=== PATIENT | male | born 1950 | race Caucasian/White ===

== ENCOUNTER 2017-11-13 18:51 | Emergency (ER) | payer SELFPAY ==
[~2017-11-13] VITALS: Ht 167.6 cm; Wt 89.0 kg
[2017-11-13] MEDS ORDERED: TETANUS, DIPHTHERIA, PERTUSSIS VAC/PF 0.5ML (>7YR OLD) IM ONE (19:30)
[2017-11-13] MEDS ORDERED: BACITRACIN/POLYMYXIN B SULFATE OINT 15GM TOP ONE (19:30)
[2017-11-13] MEDS ORDERED: LIDOCAINE HCL/EPINEPHRINE 1%-EPI 1:100,000 30 ML VIAL INFIL ONE (19:30)
[2017-11-14 03:41] VITALS: BP 117/71
== END 2017-11-14 03:43 | disposition home or self-care (01) ==
LOC: ER 18:51
DX: S02.82XA Fracture of other specified skull and facial bones, left side, initial encounter for closed fracture (principal); S51.811A Laceration without foreign body of right forearm, initial encounter; S50.812A Abrasion of left forearm, initial encounter; H54.62 Unqualified visual loss, left eye, normal vision right eye; F10.229 Alcohol dependence with intoxication, unspecified; I44.0 Atrioventricular block, first degree; Y90.9 Presence of alcohol in blood, level not specified; W01.0XXA Fall on same level from slipping, tripping and stumbling without subsequent striking against object, initial encounter; Y93.89 Activity, other specified; Y92.488 Other paved roadways as the place of occurrence of the external cause
CPT/HCPCS: 12001; 70450; 70486; 73090; 90471; 90715; 93005; 99284; X7700; Z7610

== ENCOUNTER 2019-04-09 14:36 | Emergency (ER) | payer SELFPAY ==
[~2019-04-09] VITALS: Ht 165.1 cm; Wt 68.5 kg
[2019-04-09 18:25] LABS: BASOPHILS % 1.7 % (0.0-2.0); EOSINOPHILS % 0.6 % (0.0-5.0); HEMATOCRIT. 37.6 % (42.0-52.0); HEMOGLOBIN. 12.6 g/dL (14.0-18.0); LYMPHOCYTES % 33.9 % (20.0-50.0); MEAN CORPUSCULAR VOLUME 98.3 fL (80.0-94.0); MEAN PLATELET VOLUME 6.6 fl (7.4-10.4); MONOCYTES % 6.3 % (2.0-8.0); NEUTROPHILS % 57.5 % (40.0-76.0); PLATELET 181 x1000/uL (130-400); RED BLOOD CELL COUNT 3.82 mill/uL (4.7-6.1)
[2019-04-09 18:30] LABS: CHLORIDE 94 mEq/L (98-107)
[2019-04-09 18:34] LABS: ETHANOL BLOOD 234 mg/dL
[2019-04-09] MEDS ORDERED: SODIUM CHLORIDE 0.9% 1,000 ML IV SCH (19:00)
[2019-04-09] MEDS ORDERED: ASPIRIN 81MG TABLET PO ONE (19:00)
[2019-04-09] MEDS ORDERED: MAGNESIUM/ALUMINUM HYDROXIDE/SIMETHICONE 30ML UDC PO STA (19:22)
[2019-04-09 22:21] VITALS: BP 137/80
== END 2019-04-09 22:39 | disposition home or self-care (01) ==
LOC: ER 14:36
DX: F10.129 Alcohol abuse with intoxication, unspecified (principal); R07.89 Other chest pain; R06.02 Shortness of breath; R00.2 Palpitations; R03.0 Elevated blood-pressure reading, without diagnosis of hypertension; Y90.7 Blood alcohol level of 200-239 mg/100 ml; R79.89 Other specified abnormal findings of blood chemistry
CPT/HCPCS: 36415; 71045; 80053; 80320; 83880; 84484; 85025; 93005; 99285; Z7610; G0480

== ENCOUNTER 2019-06-19 19:50 | Emergency (ER) | payer SELFPAY ==
[~2019-06-19] VITALS: Ht 170.2 cm; Wt 80.0 kg
[2019-06-19] MEDS ORDERED: LIDOCAINE HCL/PF 1% 10 MG/ML 5ML VIAL IJ ONE (21:15)
[2019-06-19] MEDS ORDERED: LIDOCAINE 1%/EPI 1:100,000 10 ML VIAL IJ ONE (21:15)
[2019-06-19] MEDS ORDERED: TETANUS, DIPHTHERIA, PERTUSSIS VAC/PF 0.5ML (>7YR OLD) IM ONE (21:15)
[2019-06-19] MEDS ORDERED: SODIUM CHLORIDE 0.9% 1,000 ML IV ONE (21:16)
[2019-06-19] MEDS ORDERED: LIDOCAINE HCL/EPINEPHRINE 1%-EPI 1:100,000 20 ML VIAL INFIL NR (21:30)
[2019-06-19 21:48] LABS: EOSINOPHILS % 3.8 % (0.0-5.0); HEMATOCRIT. 32.7 % (42.0-52.0); HEMOGLOBIN. 11.5 g/dL (14.0-18.0); LYMPHOCYTES % 29.7 % (20.0-50.0); MEAN CORPUSCULAR HEMOGLOBIN 35.1 pg (28.0-32.0); MEAN CORPUSCULAR VOLUME 99.5 fL (80.0-94.0); MEAN PLATELET VOLUME 6.1 fl (7.4-10.4); MONOCYTES % 7.3 % (2.0-8.0); NEUTROPHILS % 56.2 % (40.0-76.0); PLATELET 426 x1000/uL (130-400); RED BLOOD CELL COUNT 3.29 mill/uL (4.7-6.1)
[2019-06-19 21:54] LABS: CHLORIDE 100 mEq/L (98-107)
[2019-06-19 22:05] LABS: *AMPHETAMINES SCREEN URINE NEGATIVE (NEGATIVE); *BARBITURATES SCREEN URINE NEGATIVE (NEGATIVE); *BENZODIAZEPINES SCREEN URINE NEGATIVE (NEGATIVE); *COCAINE SCREEN URINE NEGATIVE (NEGATIVE); METHADONE URINE SCREEN NEGATIVE (NEGATIVE); OPIATES URINE SCREEN NEGATIVE (NEGATIVE)
[2019-06-19 22:06] LABS: CANNABINOID URINE SCREEN NEGATIVE (NEGATIVE); PHENCYCLIDINE URINE SCREEN NEGATIVE (NEGATIVE)
[2019-06-19 22:08] LABS: ETHANOL BLOOD 417 mg/dL
[2019-06-19] MEDS ORDERED: AMPICILLIN SOD/SULBACTAM NA 3 G in SODIUM CHLORIDE 0.9% 100 ML IV SCH (22:45)
[2019-06-20 02:37] VITALS: BP 122/77
== END 2019-06-20 02:38 | disposition home or self-care (01) ==
LOC: ER 19:50
DX: S01.01XA Laceration without foreign body of scalp, initial encounter (principal); F10.229 Alcohol dependence with intoxication, unspecified; K04.7 Periapical abscess without sinus; Y90.8 Blood alcohol level of 240 mg/100 ml or more; W01.0XXA Fall on same level from slipping, tripping and stumbling without subsequent striking against object, initial encounter; Y93.89 Activity, other specified; Y92.488 Other paved roadways as the place of occurrence of the external cause
CPT/HCPCS: 36415; 70450; 70486; 72125; 80053; 80305; 80320; 85025; 90471; 90715; 96365; 96366; 99285; J0295; J3490; J7030; J7050; G0480

== ENCOUNTER 2019-08-09 19:29 | Emergency (ER) | payer SELFPAY ==
[~2019-08-09] VITALS: Ht 165.1 cm; Wt 77.0 kg
[2019-08-09] MEDS ORDERED: IBUPROFEN 600MG TABLET PO ONE (22:00)
[2019-08-09 23:00] VITALS: BP 118/74
== END 2019-08-09 23:00 | disposition home or self-care (01) ==
LOC: ER 19:29
DX: M17.0 Bilateral primary osteoarthritis of knee (principal)
CPT/HCPCS: 73560; 99283